=== PATIENT | female | born 1955 | race Caucasian/White ===

== ENCOUNTER 2017-04-14 00:24 | Emergency (ER) | payer BC ==
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
--- NOTE | ~2017-04-14 | EKG ---
PATIENT: ANKUR EVANGELISTA UNIT #: [id number] Ventricular Rate: 61 BPM Atrial Rate: 61 BPM P-R Interval: 198 ms QRS Duration: 86 ms Q-T Interval: 434 ms QTC Calculation(Bezet): 436 ms P [place]: 65 degrees Calculated R [place]: 9 degrees Calculated T [place]: 32 degrees Diagnosis Line: Normal sinus rhythm Diagnosis Line: Cannot rule out Inferior infarct (cited on or Diagnosis Line: before 01-MAR-2013) Diagnosis Line: Normal ECG Diagnosis Line: When compared with ECG of 04-SEP-2014 11:29, Diagnosis Line: QRS duration has increased Diagnosis Line: Confirmed by AMAURY BUTLER MD ([id number]) on 04/14/2017 Diagnosis Line: 7:41:33 PM INTERPRETING MD: CARRIE KHAN
--- NOTE | ~2017-04-14 | CR72 ---
[facility] A Service of [facility] RADIOLOGY TEXT RESULTS PATIENT: ANKUR EVANGELISTA LOCATION: [facility] : 53 UNIT #: [id number] AGE: [address]: Vipin Singh MD SEX: F ORDER DR: [id number] [facility] [address] [place], [place] [address] [id number] E MR#: [id number] #: [id number] NAME: ANKUR EVANGELISTA : 1955 SEX: F STUDY DATE/TIME: 04/14/2017 1:02 UNIT: [facility] ROOM: STUDY DESCRIPTION: CR Chest Single View Portable Attending Physician: Vipin Singh M.D. Ordering Physician: Vipin Singh M.D. Primary Care Physician: Medhat Redd M.D. MEDICAL IMAGING REPORT This report is preliminary unless electronic signature is present EXAM AP portable chest, 04/14/2017 at 01:02 HISTORY 62-year-old female with weakness, dizziness and lightheadedness today. COMPARISON PA lateral chest radiograph 12/17/2014. FINDINGS A single AP portable view of the chest shows both lungs to be clear. The heart is normal in size. The mediastinal contour is normal. No significant bone abnormalities are seen. IMPRESSION Normal portable chest. Dictated by... Bobbi Trevino M.D. THIS IS AN ELECTRONICALLY VERIFIED REPORT Bobbi Trevino M.D. at 04/14/2017 9:56 PM SALLIE/dewayne TD: 04/14/2017 04:31 JOB #: [id number] MEDICAL IMAGING REPORT Page 1 of 1 COPY
[~2017-04-14 00:24] MED LIST: AMLODIPINE BESYL5 MG PO; ARTHROTEC 751 TAB.E2; ARTHROTEC EC 51 EACH PO; ARTHROTEC EC 71 EAC1 PO; COLACE PO; DICLOFENAC-MIS1 EAC2 PO; HYDROCODON-ACE1 EAC4 PO; HYDROCODON-ACE1 EAC5 PO; KEFLEX PO; KROGER PHARMACY; LEVOTHYROXINE150 MCG PO; LODINE PO; LORCET 10/650 T1 TAB; LORTAB 10/500 T1 TAB; LORTAB 10/500 T1 TAB PO; METOPROLOL TAR25 MG PO; MOBIC15 MG PO; NEXIUM; NORCO 10/325 TA1 TAB PO; NORVASC; OXYCODONE HCL5 M1 PO; ROBAXIN PO; SYNTHROID125 PO; SYNTHROID75 MCG PO; TOPROL XL PO; VITAL-D RX TABL1 TAB PO; VOLTAREN75 MG PO
[2017-04-14 01:30] LABS: POC - CKMB 4.7 ng/mL (0.0-7.9); POC - TROPONIN <0.05 ng/mL (<=0.05)
[2017-04-14 01:36] LABS: BASOPHIL# 0.1 X10e3 (0-0.3); BASOPHIL% 1.1 % (0-2.5); DIFF IND NO; EOSINOPHIL# 0.1 X10e3 (0-0.7); EOSINOPHIL% 1.3 % (0.0-7.0); HEMATOCRIT 46.6 % (35.0-45.0); HEMOGLOBIN 15.8 gm/dL (12.0-16.0); LYMPHOCYTE# 1.4 X10e3 (1.0-3.5); LYMPHOCYTE% 19.7 % (17.0-45.0); MEAN CELL VOLUME 97.9 FL (83-96); MEAN CORPUSCULAR HEMOGLOBIN 33.2 PG (28-34); MEAN PLATELET VOLUME 7.5 FL (6.5-11.5); MONOCYTE# 0.4 X10e3 (0-1.0); MONOCYTE% 5.2 % (3.0-12.0); NEUTROPHIL# 5.3 X10e3 (1.5-7.1); NEUTROPHIL% 72.7 % (40-75); PLATELET COUNT 219 X10e3 (140-420); RED BLOOD COUNT 4.76 X10e (3.90-5.30); RED CELL DISTRIBUTION WIDTH 14.2 % (11.0-15.5); WHITE BLOOD COUNT 7.2 X10e3 (4.0-10.5)
[2017-04-14 01:46] LABS: ALBUMIN SERUM 4.1 g/dL (3.5-5.0); BILIRUBIN, DIRECT 0.1 mg/dL (0.0-0.2); BILIRUBIN,INDIRECT 0.6 mg/dL (0.0-0.9); BILIRUBIN,TOTAL 0.7 mg/dL (0.2-2.0); BUN/CREATININE RATIO 17.14; CALCIUM SERUM 8.9 mg/dL (8.4-10.2); CREATININE SERUM 0.7 mg/dL (0.6-1.4); GLOM FILT RATE Estimated 92.2 mL/min (>60); POTASSIUM 3.4 mmol/L (3.5-5.1); PROTEIN TOTAL SERUM 7.2 g/dL (6.0-8.3)
[2017-04-14 02:29] LABS: URINE SOURCE CLEAN CATCH
[2017-04-14 02:34] LABS: URINE APPEARANCE CLEAR; URINE BILIRUBIN NEG (NEG); URINE BLOOD NEG (NEG); URINE COLOR YELLOW; URINE GLUCOSE NEG (NEG); URINE KETONE NEG (NEG); URINE LEUKOCYTE ESTERASE NEG (NEG); URINE NITRATE NEG (NEG); URINE PROTEIN NEG (NEG); URINE SPECIFIC GRAVITY 1.007 (1.003-1.035); URINE UROBILINOGEN 0.2 MG/DL (NEG)
[2017-04-14 02:42] LABS: CULTURE INDICATED? NO
== END 2017-04-14 03:20 | disposition home or self-care (01) ==
LOC: CED 00:24
PROVIDERS: Emergency Medicine
DX: H66.92 Otitis media, unspecified, left ear (principal); Z90.710 Acquired absence of both cervix and uterus
CPT/HCPCS: 36415; 70450; 71010; 80048; 80076; 81003; 82553; 82947; 84484; 85025; 93005; 99285; J2930